=== PATIENT | female | born 1980 | race Asian ===

== ENCOUNTER 2019-08-11 11:47 | Emergency (ER) | payer BC, OTHER ==
[~2019-08-11] VITALS: Ht 152.4 cm; Wt 56.7 kg
[2019-08-11 11:55] VITALS: BP 132/84
== END 2019-08-11 12:33 | disposition home or self-care (01) ==
LOC: EDSEX 11:53 → ER 11:53
DX: S70.11XA Contusion of right thigh, initial encounter (principal); X58.XXXA Exposure to other specified factors, initial encounter; Y93.89 Activity, other specified; Y92.89 Other specified places as the place of occurrence of the external cause; Y99.8 Other external cause status

== ENCOUNTER 2021-08-08 20:08 | Emergency (ER) | payer BC ==
--- NOTE | 2021-08-08 20:20 | NUR ---
CALLED FOR TRIAGE NOT IN WAITING ROOM
--- NOTE | 2021-08-08 20:30 | NUR ---
PATIENT LEFT WITHOUT BEING SEEN
== END 2021-08-08 20:30 | disposition left against medical advice (07) ==
LOC: ER 20:21
DX: Z53.21 Procedure and treatment not carried out due to patient leaving prior to being seen by health care provider (principal)